=== PATIENT | female | born 2000 | race African-American/Black ===

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

== ENCOUNTER 2022-01-03 05:59 | Emergency (ER) | payer OTHER ==
[2022-01-03] MEDS ORDERED: ONDANSETRON 4 MG/2 ML VIAL ONE (06:28)
[2022-01-03] MEDS ORDERED: MORPHINE 4 MG/ML SYR ONE (06:28)
[2022-01-03 06:46] LABS: Absolute Lymphocytes (CBC) 1.3 K/uL (0.7-4.9); Hematocrit 32.5 % (36.0-45.0); Lymphocytes % 8.3 % (15.3-44.8); MPV 8.4 fL (7.6-11.3); RBC Red Blood Cell Count 3.85 M/uL (3.86-4.86)
[2022-01-03 07:02] LABS: Albumin 3.6 g/dL (3.4-5.0); Bilirubin Total 0.4 mg/dL (0.2-1.0); Potassium 3.4 mmol/L (3.5-5.1); Protein, Total 7.1 g/dL (6.4-8.2)
[2022-01-03 07:04] LABS: Urine Appearance Cloudy (Clear); Urine Bilirubin Negative (Negative); Urine Blood 3+ (Negative); Urine Color Yellow (Yellow); Urine Glucose Negative (Negative); Urine Protein Negative (Negative); Urine Specific Gravity 1.015 (1.005-1.030); Urine Urobilinogen 0.2 mg/dL (0.2-1.0)
[2022-01-03 07:05] LABS: Urine Microscopic Reflex ORDER UMIC
[2022-01-03 07:08] LABS: Urine Bacteria >50 /HPF (<20)
--- NOTE | 2022-01-03 08:11 | RAD REPORT ---
EXAM DESCRIPTION: CTAbdomen Pelvis W Contrast - 01/03/2022 7:39 am CLINICAL HISTORY: Abdominal pain. Abdominal pain, acute, nonlocalized COMPARISON: <Comparisons> TECHNIQUE: Biphasic CT imaging of the abdomen and pelvis was performed with 100 ml non-ionic IV cont rast. All CT scans are performed using dose optimization technique as appropriate and may include automated exposure control or mA/KV adjustment according to patient size. FINDINGS: The lung bases are clear. The liver, spleen, pancreas, adrenal glands and kidneys are within normal limits. No bowel obstruction, free air, free fluid or abscess. The appendix is normal. No evidence of signi ficant lymphadenopathy. No suspicious bony findings. Mildly prominent uterus is noted. IMPRESSION: No acute intra-abdominal or pelvic finding.
--- NOTE | 2022-01-03 08:11 | RAD REPORT ---
EXAM DESCRIPTION: US - Abdomen Exam Limited - 01/03/2022 7:54 am CLINICAL HISTORY: abd pain, recent COMPARISON: No comparisons FINDINGS: The gallbladder demonstrates multiple small gallstones. No pericholecystic fluid or gallbl adder wall thickening. The common bile duct is normal measuring 3 mm. The liver demonstrates no biliary dilatation IMPRESSION: Cholelithiasis
--- NOTE | 2022-01-03 08:33 | ER ---
Nurse's Notes [facility] Name: Dianna Wilson Age: 21 yrs Sex: Female : 2000 Arrival Date: 01/03/2022 Time: 06:06 Bed 13 Private MD: Diagnosis: Other cholelithiasis without obstruction;UTI/ Urinary tract infection, site not specified Presentation: 01/03 06:07 Chief complaint: EMS states: Called out for abdominal pain. Severe enough had tw5 to carry patient out. Patient states it feels like contractions all over again. She had a recent 3 weeks ago without complications. Coronavirus screen: Vaccine status: Patient reports receiving the 2nd dose of the covid vaccine. [employer]. Ebola Screen: Patient negative for fever greater than or equal to 101.5 degrees Fahrenheit, and additional compatible Ebola Virus Disease symptoms Patient denies exposure to infectious person. Patient denies travel to an Ebola-affected area in the 21 days before illness onset. Initial Sepsis Screen: Does the patient meet any 2 criteria? No. Patient's initial sepsis screen is negative. Does the patient have a suspected source of infection? Yes: Acute abdominal pain. Risk Assessment: Do you want to hurt yourself or someone else? Patient reports no desire to harm self or others. Onset of symptoms was January 03, 2022 at 04:00. Care prior to arrival: Medication(s) given: 15 mg toradol. 06:07 Method Of Arrival: EMS: [facility] tw5 06:07 Acuity: TONA 3 tw5 Triage Assessment: 06:09 General: Appears uncomfortable, Behavior is calm, cooperative, appropriate for age. tw5 Pain: Complains of pain in abdomen Pain radiates to back Pain currently is 10 out of 10 on a pain scale. GI: Reports nausea. 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 - Social history:: Smoking status: Patient denies any tobacco usage or history of. - Family history:: not pertinent. - Hospitalizations: : Patient was recently seen at. Screenin:36 Abuse screen: Denies threats or abuse. Nutritional screening: No deficits noted. ll3 Tuberculosis screening: No symptoms or risk factors identified. Fall Risk No fall in past 12 months (0 pts). No secondary diagnosis (0 pts). IV access (20 points). Ambulatory Aid- None/Bed Rest/Nurse Assist (0 pts). Gait- Normal/Bed Rest/Wheelchair (0 pts) Mental Status- Oriented to own ability (0 pts). Total Yoon Fall Scale indicates No Risk (0-24 pts). Assessment: 06:10 General: Appears uncomfortable, Behavior is calm, cooperative. Pain: Complains of pain ll3 in back and abdomen Pain currently is 10 out of 10 on a pain scale. Pain began 5 AM. Neuro: Level of Consciousness is awake, alert, obeys commands, Oriented to person, place, time, situation. Respiratory: Respiratory effort is even, unlabored, Respiratory pattern is regular, symmetrical. GI: Abdomen is round non-distended, Bowel sounds present X 4 quads. Abdomen is tender to palpation in abdomen Reports lower abdominal pain, upper abdominal pain, nausea, vomiting. Derm: Skin is pink, warm \T\ dry. 07:13 Reassessment: Patient and/or family updated on plan of care and expected duration. Pain jg9 level reassessed. Patient is alert, oriented x 3, equal unlabored respirations, skin warm/dry/pink. Patient reports pain is now 6/10 but she is still uncomfortable. 08:10 Reassessment: Patient and/or family updated on plan of care and expected duration. Pain jg9 level reassessed. Patient is alert, oriented x 3, equal unlabored respirations, skin warm/dry/pink. patient back in bed from imaging, no distress, on the phone talking. Vital Signs: 06:07 BP 119 / 81; Pulse 89; Resp 18; Temp 98.2; Pulse Ox 100% ; Weight 97.07 kg; Height 5 tw5 ft. 7 in. (170.18 cm); Pain 10/10; 07:13 BP 112 / 60; Pulse 84; Resp 12 S; Pulse Ox 99% on R/A; Pain 6/10; jg9 08:50 BP 124 / 78; Pulse 73; Pulse Ox 100% on R/A; jg9 06:07 Body Mass Index 33.52 (97.07 kg, 170.18 cm) tw5 ED Course: 06:06 Patient arrived in ED. tw5 06:07 Kurt Alberto MD is Attending Physician. rn 06:09 Triage completed. tw5 06:09 Arm band placed on. tw5 06:29 CBC with Diff Sent. mh5 06:29 CMP Sent. 5 06:29 Lipase Sent. 5 06:29 Initial lab(s) drawn, by ED staff, sent to lab. Maintain EMS IV. Dressing intact. Good 5 blood return noted. Site clean \T\ dry. 06:30 Patient has correct armband on for positive identification. Bed in low position. Call [facility] light in reach. Side rails up X 1. Warm blanket given. Pulse ox on. NIBP on. 06:50 Urine Culture Sent. 5 06:50 Urine collected: clean catch specimen, cloudy. 5 07:13 Ivonne Farrell, LINDA is Primary Nurse. jg9 07:34 Attending Physician role handed off by Kurt Alberto MD ma2 07:34 Marsha Yañez MD is Attending Physician. ma2 07:40 CT Abd/Pelvis - IV Contrast Only In Process Unspecified. EDMS 07:56 Abdomen Limited US In Process Unspecified. EDMS 08:27 Urine Microscopic Only Sent. jg9 08:33 Mariano Zavala MD is Referral Physician. ma2 08:50 No provider procedures requiring assistance completed. jg9 08:50 IV discontinued. jg9 Administered Medications: 06:30 Drug: Zofran (Ondansetron) 4 mg Route: IVP; Site: right antecubital; ll3 07:15 Follow up: Response: No adverse reaction jg9 06:35 Drug: morphine 4 mg Route: IVP; Infused Over: 4 mins; Site: right antecubital; ll3 07:15 Follow up: Response: No adverse reaction; Pain is decreased jg9 Medication: 06:10 VIS not applicable for this client. ll3 Outcome: 08:33 Discharge ordered by . ma2 08:50 Discharged to home ambulatory. jg9 08:50 Condition: stable 08:50 Discharge instructions given to patient, Instructed on discharge instructions, follow up and referral plans. Demonstrated understanding of instructions, follow-up care, Prescriptions given X 3. 08:51 Patient left the ED. jg9 Signatures: Dispatcher [employer] EDMS Kurt Alberto MD MD rn Martinez, Maria [facility] Marsha Yañez MD MD ma2 Wood, Tiffany Adalgisa Adams RN RN ll3 Ivonne Farrell RN RN jg9 Corrections: (The following items were deleted from the chart) 07:00 06:29 UA MICROSCOPIC+U.LAB.BRZ drawn and sent. [address] 07:01 06:50 URINALYSIS+U.LAB.BRZ drawn and sent. [address]
--- NOTE | 2022-01-03 08:34 | EDPHYS ---
Physician Documentation [facility] Name: Dianna Wilson Age: 21 yrs Sex: Female : 2000 Arrival Date: 01/03/2022 Time: 06:06 Bed 13 Private MD: ED Physician Marsha Yañez HPI: 01/03 06:17 This 21 yrs old Black Female presents to ER via EMS with complaints of Abdominal Pain. rn 06:17 The patient presents with abdominal pain in the upper abdomen. Onset: The rn symptoms/episode began/occurred this morning. The symptoms radiate to back. Associated signs and symptoms: Pertinent positives: nausea and vomiting, Pertinent negatives: blood in stools, chest pain, constipation, diarrhea, dysuria, fever, hematuria, vomiting blood. The symptoms are described as achy, crampy, sharp. Modifying factors: The symptoms are alleviated by nothing, the symptoms are aggravated by nothing. Severity of pain: At its worst the pain was moderate in the emergency department the pain is unchanged. The patient has not experienced similar symptoms in the past. The patient has been recently seen by a physician:. Pt reports just had vaginal delivery 3 weeks ago, full term, uncomplicated, had epidural at the time. Was doing ok, no worsening or new vaginal discharge, no fever. + nausea/vomiting. No diarrhea. Reports pain in upper abdomen and mid back at location of epidural. No trauma. . 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 - Social history:: Smoking status: Patient denies any tobacco usage or history of. - Family history:: not pertinent. - Hospitalizations: : Patient was recently seen at. ROS: 06:17 Constitutional: Negative for fever, chills, and weight loss, Eyes: Negative for injury, rn pain, redness, and discharge, Neck: Negative for injury, pain, and swelling, Cardiovascular: Negative for chest pain, palpitations, and edema, Respiratory: Negative for shortness of breath, cough, wheezing, and pleuritic chest pain, Abdomen/GI: + abd pain and nausea/vomiting Back: Negative for injury : Negative for injury, bleeding, discharge, and swelling, MS/Extremity: Negative for injury and deformity, Skin: Negative for injury, rash, and discoloration, Neuro: Negative for headache, weakness, numbness, tingling, and seizure. Exam: 06:17 Constitutional: This is a well developed, well nourished patient who is awake, alert rn Head/Face: Normocephalic, atraumatic. Cardiovascular: Regular rate and rhythm. No pulse deficits. Respiratory: No increased work of breathing, no retractions or nasal flaring. Abdomen/GI: soft, + tender RUQ/epigastric/LUQ/periumbilical Back: No spinal tenderness. No costovertebral tenderness. Full range of motion. Skin: Warm, dry MS/ Extremity: Pulses equal, no cyanosis. Neuro: Awake and alert, GCS 15, oriented to person, place, time, and situation. Cranial nerves II-XII grossly intact. Motor strength 5/5 in all extremities. Sensory grossly intact. Vital Signs: 06:07 BP 119 / 81; Pulse 89; Resp 18; Temp 98.2; Pulse Ox 100% ; Weight 97.07 kg; Height 5 tw5 ft. 7 in. (170.18 cm); Pain 10/10; 07:13 BP 112 / 60; Pulse 84; Resp 12 S; Pulse Ox 99% on R/A; Pain 6/10; jg9 08:50 BP 124 / 78; Pulse 73; Pulse Ox 100% on R/A; jg9 06:07 Body Mass Index 33.52 (97.07 kg, 170.18 cm) tw5 MDM: 06:07 Patient medically screened. rn 07:05 Transition of care: After a detail discussion of the patient's case, care is rn transferred to Marsha Yañez MD. 08:32 Differential diagnosis: gastritis, gastroesophageal reflux disease, Irritable bowel ma2 syndrome, non-specific abd pain. Data reviewed: vital signs, nurses notes. Counseling: I had a detailed discussion with the patient and/or guardian regarding: the historical points, exam findings, and any diagnostic results supporting the discharge/admit diagnosis, the presence of at least one elevated blood pressure reading (>120/80) during this emergency department visit, the need for outpatient follow up. Response to treatment: the patient's symptoms have resolved after treatment. 01/03 06:15 Order name: CBC with Diff; Complete Time: 06:53 rn 01/03 06:15 Order name: CMP; Complete Time: 08:13 rn 01/03 06:15 Order name: Lipase; Complete Time: 08:13 rn 01/03 06:50 Order name: Urine Culture mw2 01/03 06:15 Order name: Abdomen Limited US; Complete Time: 08:13 rn 01/03 06:15 Order name: CT Abd/Pelvis - IV Contrast Only; Complete Time: 08:13 rn 01/03 07:04 Order name: Urinalysis; Complete Time: 08:13 EDMS 01/03 07:06 Order name: Urinalysis; Complete Time: 08:13 EDMS 01/03 07:11 Order name: Urine Microscopic Only EDMS 01/03 06:15 Order name: IV Saline Lock; Complete Time: 06:29 rn 01/03 06:15 Order name: Labs collected and sent; Complete Time: 06:29 rn 01/03 06:15 Order name: Urine Dipstick-Ancillary (obtain specimen); Complete Time: 06:48 rn Administered Medications: 06:30 Drug: Zofran (Ondansetron) 4 mg Route: IVP; Site: right antecubital; ll3 07:15 Follow up: Response: No adverse reaction jg9 06:35 Drug: morphine 4 mg Route: IVP; Infused Over: 4 mins; Site: right antecubital; ll3 07:15 Follow up: Response: No adverse reaction; Pain is decreased jg9 Disposition Summary: 01/03/22 08:33 Discharge Ordered Location: Home ma2 Condition: Stable ma2 Diagnosis - Other cholelithiasis without obstruction ma2 - UTI/ Urinary tract infection, site not specified ma2 Followup: ma2 - With: Mariano Zavala MD - When: Tomorrow - Reason: If symptoms return, Continuance of care Discharge Instructions: - Urinary Tract Infection, Adult ma2 - Cholelithiasis ma2 - Discharge Summary Sheet jg9 Forms: - Work release form jg9 - Medication Reconciliation Form ma2 - Thank You Letter ma2 - Antibiotic Education ma2 - Prescription Opioid Use ma2 Prescriptions: - Zofran 4 mg Oral Tablet - take 1 tablet by ORAL route every 12 hours As needed; 20 tablet; Refills: 0, ma2 Product Selection Permitted - Diclofenac Sodium 75 mg Oral Tablet Sustained Release - take 1 tablet by ORAL route 2 times per day; 30 tablet; Refills: 0, Product ma2 Selection Permitted - cefpodoxime 200 mg Oral Tablet - take 1 tablet by ORAL route every 12 hours with food; 14 tablet; Refills: 0, ma2 Product Selection Permitted Signatures: Dispatcher [employer] EDMS Kurt Alberto MD MD rn Alzahri, Mohammad, MD MD ma2 Florence Simmons tw5 Adalgisa Quesada RN RN ll3 Ivonne Farrell RN jg9 Corrections: (The following items were deleted from the chart) 07:00 06:16 UA MICROSCOPIC+U.LAB.BRZ ordered. EDMS EDMS 07:01 06:50 URINALYSIS+U.LAB.BRZ ordered. EDMS EDMS 07:11 07:01 Urinalysis W/Microscopic ordered. EDMS EDMS
[2022-01-03 09:15] VITALS: TEMP 98.2
[2022-01-03 09:24] VITALS: BP 124/78; O2SAT 100
== END 2022-01-03 08:51 | disposition home or self-care (01) ==
LOC: ER 05:59
DX: K80.20 Calculus of gallbladder without cholecystitis without obstruction (principal); N39.0 Urinary tract infection, site not specified
CPT/HCPCS: 87088; 85025; 87086; 36415; 87077; 87186; 83690; 80053; 74177; 76705; 96375; 96374; 99284; Q9967; J2405; 81003; 81015

== ENCOUNTER 2022-01-03 18:20 | Inpatient (IN) | payer OTHER ==
--- NOTE | 2022-01-03 19:34 | ER ---
Nurse's Notes [facility] Name: Dianna Wilson Age: 21 yrs Sex: Female : 2000 Arrival Date: 01/03/2022 Time: 18:22 Bed 16 Private MD: Diagnosis: Abdominal pain, Generalized;Fever, unspecified;UTI/ Urinary tract infection, site not specified Presentation: 01/03 18:33 Chief complaint: Patient states: "I was discharged earlier today and diagnosed with ss gallbladder and UTI. I checked my temperature at home and it said 103.0 and I feel lightheaded." PT states she did not take fever reducing medication prior to arrival. Coronavirus screen: Client denies travel out of the [place] in the last 14 days. Ebola Screen: Patient denies exposure to infectious person. Patient denies travel to an Ebola-affected area in the 21 days before illness onset. Initial Sepsis Screen: Does the patient meet any 2 criteria? No. Patient's initial sepsis screen is negative. Does the patient have a suspected source of infection? Yes: Dysuria/Frequency/Urgency/UTI. Risk Assessment: Do you want to hurt yourself or someone else? Patient reports no desire to harm self or others. Onset of symptoms was January 03, 2022. 18:33 Method Of Arrival: Ambulatory ss 18:33 Acuity: TONA 4 ss Triage Assessment: 18:45 Headache History: Denies prior headaches. General: Appears in no apparent distress. jg9 Behavior is calm, cooperative, Smells of. Pain:. Pain: Complains of pain in head Pain currently is 5 out of 10 on a pain scale. Pain: Pain began 1 hour ago. Also complains of no other associated symptoms. Neuro: Reports lightheaded. 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 - Social history:: Smoking status: Patient denies any tobacco usage or history of. Screenin:45 Abuse screen: Denies threats or abuse. Nutritional screening: No deficits noted. jg9 Tuberculosis screening: No symptoms or risk factors identified. Fall Risk None identified. Assessment: 18:44 Reassessment: No changes from previously documented assessment. jg9 Vital Signs: 18:30 BP 117 / 70; Pulse 93; Resp 14 S; Pulse Ox 99% ; jg9 18:33 BP 118 / 65; Pulse 92; Resp 14; Temp 100.3(O); Pulse Ox 99% ; Weight 98.43 kg; Height 5 ss ft. 7 in. (170.18 cm); Pain 6/10; 18:33 Body Mass Index 33.99 (98.43 kg, 170.18 cm) ED Course: 18:22 Patient arrived in ED. as 18:30 Jitendra Negron PA is PHCP. [facility] 18:30 Marsha Yañez MD is Attending Physician. [facility] 18:35 Triage completed. ss 18:35 Arm band placed on right wrist. ss 18:44 Ivonne Farrell, LINDA is Primary Nurse. jg9 18:47 Patient has correct armband on for positive identification. Bed in low position. Call jg9 light in reach. Side rails up X 1. 19:31 Sujit Blair is Hospitalizing Provider. jmm 19:45 Inserted saline lock: 20 gauge in left antecubital area, using aseptic technique. ke1 Administered Medications: 20:07 Drug: NS 0.9% 1000 ml Route: IV; Rate: 1 bolus; Site: left antecubital; ke1 20:07 Drug: Zofran (Ondansetron) 4 mg Route: IVP; Site: left antecubital; ke1 20:07 Drug: Cefepime 1 grams Route: IVPB; Rate: 200 ml/hr; Infused Over: 30 mins; Site: left ke1 antecubital; 20:07 Drug: Flagyl (metroNIDAZOLE) 500 mg Volume: 100 ml; Route: IVPB; Rate: 200 ml/hr; ke1 Infused Over: 30 mins; Site: left antecubital; 20:07 Drug: morphine 4 mg Route: IVP; Infused Over: 4 mins; Site: left antecubital; ke1 Medication: 18:47 VIS not applicable for this client. jg9 Outcome: 19:34 Decision to Hospitalize by Provider. m 22:56 Patient left the ED. ds4 Signatures: Jitendra Negron PA PA jmm Martinez, Amelia as Smirch, Shelby, RN RN ss Arthur El ds4 Ivonne Farrell, RN RN jg9 Robb Mcadams RN RN ke1
--- NOTE | 2022-01-03 19:35 | EDPHYS ---
Physician Documentation [facility] Name: Dianna Wilson Age: 21 yrs Sex: Female : 2000 Arrival Date: 01/03/2022 Time: 18:22 Bed 16 Private MD: ED Physician Marsha Yañez HPI: 01/03 18:40 This 21 yrs old Black Female presents to ER via Ambulatory with complaints of Fever, jmm Headache, Back Pain - gallbladder. 18:40 Onset: The symptoms/episode began/occurred gradually. This is a 21 year old female with jmm a history of asthma that presents to the ED with complaints of ongoing abdominal pain, vomiting. Patient was seen in the ED earlier this morning and diagnosed with a UTI. Patient states her pain has intensified. . 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 - Social history:: Smoking status: Patient denies any tobacco usage or history of. ROS: 18:40 Constitutional: Positive for chills, fever. jmm 18:40 Abdomen/GI: Positive for abdominal pain, nausea and vomiting. 18:40 Back: Positive for pain with movement. 18:40 All other systems are negative. Exam: 18:40 Constitutional: This is a well developed, well nourished patient who is awake, alert, jmm and in no acute distress. Head/Face: atraumatic. Eyes: EOMI, no conjunctival erythema appreciated ENT: Moist Mucus Membranes Neck: Trachea midline, Supple Chest/axilla: Normal chest wall appearance and motion. Cardiovascular: Regular rate and rhythm. No edema appreciated Respiratory: Normal respirations, no respiratory distress appreciated 18:40 Back: Normal ROM Skin: General appearance color normal MS/ Extremity: Moves all extremities, no obvious deformities appreciated, no edema noted to the lower extremities Neuro: Awake and alert Psych: Behavior is normal, Mood is normal, Patient is cooperative and pleasant 18:40 Abdomen/GI: Inspection: abdomen appears normal, Bowel sounds: normal, Palpation: soft, moderate abdominal tenderness, in all quadrants. Vital Signs: 18:30 BP 117 / 70; Pulse 93; Resp 14 S; Pulse Ox 99% ; jg9 18:33 BP 118 / 65; Pulse 92; Resp 14; Temp 100.3(O); Pulse Ox 99% ; Weight 98.43 kg; Height 5 ss ft. 7 in. (170.18 cm); Pain 6/10; 18:33 Body Mass Index 33.99 (98.43 kg, 170.18 cm) ss MDM: 18:40 Patient medically screened. catie 19:31 Data reviewed: vital signs, nurses notes. Counseling: I had a detailed discussion with catie the patient and/or guardian regarding: the historical points, exam findings, and any diagnostic results supporting the discharge/admit diagnosis, lab results, the need for further work-up and treatment in the hospital. 01/04 00:23 ED course: Labs from the previous visit were reviewed. I discussed these labs with Dr. catie Zavala whom will consult on admission. I discussed the patient with Nella Addison PA-C whom accepted the patient to Dr. Blair's service. Repeat labs revealed elevations in bili and transaminases raising concerns for choledocholithiasis. Call for tomorrow shows GI to be teacher education director tomorrow. Nella Addison will consult GI as well and order MRCP for am. . 01/03 18:40 Order name: CBC with Diff; Complete Time: 20:02 [facility] 01/03 18:40 Order name: CMP; Complete Time: 20:27 [facility] 01/03 18:40 Order name: Lipase; Complete Time: 20:27 [facility] 01/03 18:40 Order name: Blood Culture Adult (2) [facility] 01/03 18:43 Order name: Urine Culture [facility] 01/03 19:49 Order name: COVID-19 SARS RT PCR (Document "Date of Onset" if Symptomatic); Complete tw5 Time: 21:17 01/03 18:40 Order name: IV Saline Lock; Complete Time: 19:45 [facility] 01/03 18:40 Order name: Labs collected and sent; Complete Time: 19:45 [facility] 01/03 20:44 Order name: CONS Physician Consult EDMS Administered Medications: 01/03 20:07 Drug: NS 0.9% 1000 ml Route: IV; Rate: 1 bolus; Site: left antecubital; ke1 20:07 Drug: Zofran (Ondansetron) 4 mg Route: IVP; Site: left antecubital; ke1 20:07 Drug: Cefepime 1 grams Route: IVPB; Rate: 200 ml/hr; Infused Over: 30 mins; Site: left ke1 antecubital; 20:07 Drug: Flagyl (metroNIDAZOLE) 500 mg Volume: 100 ml; Route: IVPB; Rate: 200 ml/hr; ke1 Infused Over: 30 mins; Site: left antecubital; 20:07 Drug: morphine 4 mg Route: IVP; Infused Over: 4 mins; Site: left antecubital; ke1 Disposition Summary: 01/03/22 19:34 Hospitalization Ordered Hospitalization Status: Observation [facility] Provider: Sujit Blair Location: Telemetry/MedSurg (observation) [facility] Condition: Stable jmm Problem: new jmm Symptoms: are unchanged jmm Bed/Room Type: Standard [facility] Room Assignment: 224(01/03/22 21:32) Diagnosis - Abdominal pain, Generalized jmm - Fever, unspecified jmm - UTI/ Urinary tract infection, site not specified [facility] Forms: - Medication Reconciliation Form jmm - SBAR form [facility] Addendum: 01/11/2022 18:07 Co-signature as Attending Physician, Marsha rivera a2 Signatures: Dispatcher [employer] Noemy Andersen RN Jitendra Choudhury PA PA Marisela Blanton RN RN ss Alzahri, Mohammad, MD MD ma2 Robb Mcadams RN RN ke1 Corrections: (The following items were deleted from the chart) 01/03 21:32 19:34 [facility] mw
[2022-01-03 19:57] LABS: Absolute Lymphocytes (CBC) 0.8 K/uL (0.7-4.9); Hematocrit 33.1 % (36.0-45.0); Lymphocytes % 8.9 % (15.3-44.8); MPV 8.8 fL (7.6-11.3); RBC Red Blood Cell Count 3.99 M/uL (3.86-4.86)
[2022-01-03] MEDS ORDERED: MORPHINE 4 MG/ML SYR ONE (19:58)
[2022-01-03] MEDS ORDERED: NA CHLORIDE 0.9% 1,000 ML ONE (19:59)
[2022-01-03] MEDS ORDERED: NA CHLORIDE 0.9% 100 ML ONE (19:59)
[2022-01-03] MEDS ORDERED: ONDANSETRON 4 MG/2 ML VIAL ONE (19:59)
[2022-01-03] MEDS ORDERED: CEFEPIME 1 GM/VIAL ONE (19:59)
[2022-01-03] MEDS ORDERED: METRONIDAZOLE 500mg IVPB 500 MG/100 ML BAG IV ONE (19:59)
[2022-01-03 20:11] LABS: Albumin 3.5 g/dL (3.4-5.0); Bilirubin Total 2.4 mg/dL (0.2-1.0); Potassium 3.4 mmol/L (3.5-5.1); Protein, Total 7.2 g/dL (6.4-8.2)
--- NOTE | 2022-01-03 20:46 | P.HP ---
Certification for Inpatient Patient admitted to: Observation With expected LOS: <2 Midnights Patient will require the following post-hospital care: None Practitioner: I am a practitioner with admitting privileges, knowledge of patient current condition, hospital course, and medical plan of care. Services: Services provided to patient in accordance with Admission requirements found in Title 42 Section 412.3 of the Code of Federal Regulations Patient History Date of Service: 01/03/22 Reason for admission: Abd Pain, Elevated LFTs History of Present Illness: Patient is a 21-year-old female 3 weeks who presented to the ED with complaints of fever and abdominal pain. Patient was seen in the ED earlier today and diagnosed with UTI and cholelithiasis with Zofran, diclofenac, and cefpodoxime and to follow up with general surgery. Febrile at 100.3 upon arrival. Labs significant for WBC 9.3 (15 during previous visit today), potassium 3.4, T bili 2.4, AST 272, ALT 197, alk phos 231. Liver enzymes were WNL during previous visit. Abdominal ultrasound earlier showed cholelithiasis without cholecystitis or bile duct dilation. She was started on Flagyl and cefepime in the ED. Patient is admitted for further evaluation and treatment as we do have GI. Allergies No Known Allergies Allergy (Unverified 01/03/22 21:21) Home medications list reviewed: Yes (NA) - Past Medical/Surgical History Diabetic: No -: Asthma Past Surgical History: Patient denies surgical history Psychosocial/ Personal History: Patient lives at home with her significant other and baby. - Family History Mother -: Hypertension - Social History Smoking Status: Never smoker Alcohol use: No CD- Drugs: No Caffeine use: No Place of Residence: Home Review of Systems General: Fever Gastrointestinal: Nausea, Vomiting, Abdominal Pain Physical Examination - Physical Exam General: Alert, In no apparent distress HEENT: Atraumatic, PERRLA, EOMI, Sclerae nonicteric Neck: Supple, 2+ carotid pulse no bruit, No LAD, Without JVD or thyroid abnormality Respiratory: Clear to auscultation bilaterally, Normal air movement Cardiovascular: Regular rate/rhythm, Normal S1 S2 Gastrointestinal: Normal bowel sounds, Soft and benign, Tenderness Musculoskeletal: No tenderness Integumentary: No rashes Neurological: Normal speech, Normal strength at 5/5 x4 extr, Normal tone, Normal affect - Studies Laboratory Data (last 24 hrs) 01/03/22 19:30: Sodium 136, Potassium 3.4 L, BUN 9, Creatinine 0.87, Glucose 92, Total Bilirubin 2.4 H, AST 272 H D, ALT 197 H D, Alkaline Phosphatase 231 H D, Lipase 75 01/03/22 19:30: WBC 9.3 D, Hgb 11.0 L, Hct 33.1 L, Plt Count 334 Assessment and Plan - Problems (Diagnosis) (1) Cholelithiasis Current Visit: Yes Status: Acute Qualifiers: Cholelithiasis location: gallbladder Cholecystitis presence: without cholecystitis Biliary obstruction: without biliary obstruction Qualified Code(s): K80.20 - Calculus of gallbladder without cholecystitis without obstruction (2) Elevated LFTs Current Visit: Yes Status: Acute (3) Fever Current Visit: Yes Status: Acute Qualifiers: Fever type: unspecified Qualified Code(s): R50.9 - Fever, unspecified (4) UTI (urinary tract infection) Current Visit: Yes Status: Acute Qualifiers: Urinary tract infection type: acute cystitis Hematuria presence: without hematuria Qualified Code(s): N30.00 - Acute cystitis without hematuria (5) Hypokalemia Current Visit: Yes Status: Acute - Plan -GI and gen surgery consulted -MRCP ordered for morning. -NPO at midnight. Continue IVF and IV antibiotics -Morphine PRN pain, zofran PRN nausea -Monitor and replete electrolytes per protocol -Lovenox for VTE ppx -Full code Discharge Plan: Home Plan to discharge in: 24 Hours - Advance Directives Does patient have a Living Will: No Does patient have a Durable POA for Healthcare: No - Code Status/Comfort Care Code Status Assessed: Yes (Full) Critical Care: No Time Spent Managing Pts Care (In Minutes): 50
[2022-01-03] MEDS: CEFEPIME 1 GM in NA CHLORIDE 0.9% 100 ML IV SCH (21:51)
[2022-01-03 22:44] VITALS: BMI 32.4
[2022-01-03] MEDS: Ringers Lactate 1,000 ML IV SCH (23:06)
[2022-01-04] MEDS: METRONIDAZOLE 500mg IVPB 500 MG/100 ML BAG IV SCH ×3 (01:05→15:48)
[2022-01-04] MEDS: MORPHINE 2 MG/ML SYR IV PRN ×5 (01:08→22:45)
[2022-01-04 04:15] LABS: Absolute Lymphocytes (CBC) 1.5 K/uL (0.7-4.9); Hematocrit 29.3 % (36.0-45.0); Lymphocytes % 22.6 % (15.3-44.8); MCV 84.7 fL (80-100); MPV 8.4 fL (7.6-11.3); RBC Red Blood Cell Count 3.45 M/uL (3.86-4.86)
[2022-01-04 04:44] LABS: Albumin 2.9 g/dL (3.4-5.0); Bilirubin Total 2.8 mg/dL (0.2-1.0); Magnesium 1.9 mg/dL (1.8-2.4); Phosphorus 3.6 mg/dL (2.5-4.9); Potassium 3.6 mmol/L (3.5-5.1); Protein, Total 6.3 g/dL (6.4-8.2); Thyroid Stimulating Hormone 1.67 uIU/mL (0.360-3.740)
[2022-01-04] MEDS ORDERED: KCL 20 MEQ/100 mL IVPB 20 MEQ/100 ML BAG IV SCH (06:30)
[2022-01-04] MEDS: Ringers Lactate 1,000 ML IV SCH ×4 (07:51→20:28)
[2022-01-04] MEDS ORDERED: CEFEPIME 1 GM/VIAL ONE (07:57)
[2022-01-04] MEDS ORDERED: NA CHLORIDE 0.9% 100 ML ONE (07:58)
[2022-01-04] MEDS: CEFEPIME 1 GM in NA CHLORIDE 0.9% 100 ML IV SCH ×2 (08:07→20:27)
[2022-01-04] MEDS: ENOXAPARIN 40 MG/0.4 ML SQ SCH (08:08)
--- NOTE | 2022-01-04 12:59 | P.PN ---
Subjective Date of Service: 01/04/22 Chief Complaint: Abd Pain, Elevated LFTs Patient report intermittent abdominal pain. She denies any fever. Physical Examination - Vital Signs Temperature: 98.6 F Blood Pressure: 132/75 Pulse: 76 Respirations: 16 Pulse Ox (%): 97 - Physical Exam General: Alert, In no apparent distress, Oriented x3 HEENT: Mucous membr. moist/pink, Sclerae nonicteric Neck: Supple, JVD not distended Respiratory: Clear to auscultation bilaterally, Normal air movement Cardiovascular: No edema, Regular rate/rhythm, Normal S1 S2 Gastrointestinal: Normal bowel sounds, Non-distended, Tenderness (Right upper quadrant) Musculoskeletal: No swelling, No tenderness Integumentary: No rashes, No erythema, No cyanosis Neurological: Normal strength at 5/5 x4 extr - Studies Laboratory Data (last 24 hrs) 01/03/22 19:30: Sodium 136, Potassium 3.4 L, BUN 9, Creatinine 0.87, Glucose 92, Total Bilirubin 2.4 H, AST 272 H D, ALT 197 H D, Alkaline Phosphatase 231 H D, Lipase 75 01/03/22 19:30: WBC 9.3 D, Hgb 11.0 L, Hct 33.1 L, Plt Count 334 Assessment And Plan - Current Problems (Diagnosis) (1) Cholelithiasis Current Visit: Yes Status: Acute Qualifiers: Cholelithiasis location: gallbladder Cholecystitis presence: without cholecystitis Biliary obstruction: without biliary obstruction Qualified Code(s): K80.20 - Calculus of gallbladder without cholecystitis without obstruction (2) Elevated LFTs Current Visit: Yes Status: Acute (3) Fever Current Visit: Yes Status: Acute Qualifiers: Fever type: unspecified Qualified Code(s): R50.9 - Fever, unspecified (4) UTI (urinary tract infection) Current Visit: Yes Status: Acute Qualifiers: Urinary tract infection type: acute cystitis Hematuria presence: without hematuria Qualified Code(s): N30.00 - Acute cystitis without hematuria - Plan CT abdomen pelvis result reviewed and reported normal liver, no comment on CBD Continue IV cefepime and Flagyl. Elevated LFT highly indicative of biliary tree obstruction or cholestasis. GI consult. MRCP tomorrow. Supportive measures-antiemetics and pain management. Start clear liquid diet Follow urine culture and blood cultures.
[2022-01-04] MEDS: ACETAMINOPHEN 500 MG TAB PO PRN (15:44)
[2022-01-04] MEDS: ONDANSETRON 4 MG/2 ML VIAL IV PRN ×2 (15:48→22:49)
--- NOTE | 2022-01-04 16:58 | CON ---
Date of Consultation: 01/04/2022 Diagnoses: Abdominal pain, urinary tract infection, symptomatic cholelithiasis and increased liver e nzymes. History Of Present Illness: This is the case of a 21-year-old patient, comes to the ER complaining o f suprapubic pain, diagnosed with UTI at the same time. She stated that she delivered a baby 3 weeks ago. She has this epigastric right upper quadrant pain, sometimes radiating to the back. During e workup, the patient was found to have also increased LFTs and also gallstones, so she was admitted for the UTI treatment and also for the evaluation of her LFTs and possible choledocholithiasis. She denies any trauma, any melena, any rectal bleeding, although she states dysuria, no hematuria. Review of Systems: Ten points otherwise unremarkable. Past Medical History: Include asthma. Past Surgical History: None. Family History: Include hypertension. Social History: She does not smoke. She does not drink alcohol. Allergies: NONE. SHE STATES SHE HAS A NORMAL DELIVERY OF A BABY 3 WEEKS AGO. Physical Examination: General: The patient is awake alert. HEENT: Pupils are equal and reactive. EOM positive. Anicteric. Neck: Supple. Chest: Clear. Abdomen: Soft and depressible. Mild suprapubic tenderness. She does not have any major pain in the belly right now, although she states some upper back pain. No Ramos sign. Pelvic: Deferred. Rectal: Deferred. Breast: Deferred. Extremities: Good capillary refill. Laboratory Data: WBC count of 6.6, hemoglobin of 9.7, and platelets of 302. Total bilirubin of 2.8, coming up from 2.4. Alkaline phosphate is 211, ALT 169, AST 188, lipase is 75. The patient had abd ominal CT done showing no acute intraabdominal pelvic findings. The ultrasound of the abdomen shows cholelithiasis. Assessment: A 21-year-old patient with different problems, abdominal pain, suprapubic pain, dysuria, urinary tract infection, cholelithiasis, and also increased liver enzymes. We are going to get a GI consult with Dr. Smyth involved for ERCP if possible to rule out any stone in the common bile duct. The options of laparoscopic cholecystectomy with possible open are discussed with the patient. At the same time, we have to remember that she has been treated also for urinary tract infection and fev er. So at 1 point, once the rule out of the common bile duct stones done, we have to decide what is the best time to do the cholecystectomy. She preferred to have it done during this admission. She u nderstands pros and cons of it. We will discuss that once the GI is involved with the patient. ROXANNE/JELLY Voice ID: [id number] Report ID: [id number]
[2022-01-04] MEDS ORDERED: IBUPROFEN 600 MG TAB PO PRN (18:43)
[2022-01-04] MEDS ORDERED: DOCUSATE NA 100 MG CAP PO PRN (18:43)
--- NOTE | 2022-01-04 22:38 | CON ---
Date of Consultation: 01/04/2022 Reason For Consultation: Cholelithiasis, cholecystitis, and possible choledocholithiasis. History Of Present Illness: The patient is a 21-year-old female with history of ast hma. The patient was in the hospital with right upper quadrant midepigastric left upper quadrant dot n with nausea, vomiting, fevers, and chills with a temperature up to 103.6 report. Liver numbers wer e elevated AST and ALT, a total bilirubin up to 2.8, and alkaline phosphatase normal. The patient ca me to the hospital for further evaluation, also found to have urinary tract infection, on antibiotics . The patient stated the pain began waking her from sleep yesterday morning. She came to the hospit al for further evaluation and care. It appears CT and ultrasound are not available currently. Repor t earlier revealed gallstones in gallbladder and cholecystitis with the elevation in the liver ____ suspicion of possible choledocholithiasis. Past Medical History: Significant for asthma. Medications: None. Allergies: NKDA. Social History: She is single, lives with boyfriend, has 3 children. No tobacco. No alcohol. Occa sional marijuana. Family History: Father, she does not know well. Mother is alive with hypertension and had a cholecy stectomy after her third child. Review of Systems: The patient has upper abdominal pain, which awoke her from sleep and wrapped around to her back, some midepigastric left upper quadrant pain radiating to the back associated with nausea, vomiting, fever s, chills, a temperature up to 103.6 degrees Fahrenheit. She denies any diarrhea, constipation, or c hange in weight. She is 3 weeks' status post delivery of her third child. Physical Examination: Vital Signs: She is 5 feet 7 inches, 210 pounds. BMI of 32.3 kg m sq. Temperature decreased to 98. 1 on antibiotics, pulse of 90, respirations 16, blood pressure 127/63, and O2 saturation 97%. General: She is a mildly obese female lying in bed, in no acute distress. HEENT: Normocephalic and atraumatic. Anicteric. Pupils are equal, round, and reactive to light. E xtraocular movements are intact. Oropharynx clear. Neck: Supple. No masses. Respirations: Clear to auscultation bilaterally. Cardiac: Regular rhythm. Gastrointestinal: Positive bowel sounds, but hypoactive. Soft, nondistended, mildly obese. Pain in the midepigastric, left upper quadrant, right upper quadrant area with some equivocal Ramos sign. No rebound. Slight guarding. No peritoneal signs. No rebound. Extremities: No clubbing, cyanosis, or edema. 2+ pulses. Neuro: Alert and oriented x3. Grossly nonfocal. 5/5 motor sensation intact to light touch. Diagnostic Studies: The patient has a white count of 6.6, down from 9.3 yesterday; hemoglobin 9.7, h ematocrit 29.3, MCV of 85, platelet count 302, polys of 61%, down from 83% yesterday, lymphocytes 23% , monocytes 14%, and eosinophils 2%. The patient has a sodium of 140, potassium 3.6, chloride 110, b icarb 26, BUN of 10, creatinine of 0.7, glucose 100, calcium 8.4, phosphorus 3.6, magnesium 1.9, tota l bilirubin 2.8, down from 2.4 yesterday, AST of 118, ALT down from 270 yesterday, ALT of 169, down f rom 197 yesterday, alkaline phosphatase 211, down from 231 yesterday. Total protein 6.3, albumin 3.9 , globulin of 3.4. Triglycerides 96, cholesterol 123, LDL 57, and HDL 47. Lipase normal at 75. TSH is 1.67. Serologies: COVID-19 testing was negative. On the , the patient has a CT of the abdo men and pelvis, which revealed a ultrasound revealed gallstones in gallbladder by verbal r eport, no written report is available in this computer. Says the gallbladder demonstrates multiple s mall gallstones with no pericholecystic fluid or gallbladder wall thickening. The common bile duct i s measured normal at 3 mm. Impression: 1.Cholelithiasis and probable cholecystitis by history and exam with right upper quadrant midepigast hanna pain radiating to back with nausea, vomiting, fevers, chills, temperature 103.6, and elevated melania er chemistries including AST, ALT, total bilirubin, and alkaline phosphatase. Ultrasound of abdomen reveals gallstones in gallbladder, but no gallbladder wall thickening, no pericholecystic fluid. Com mon bile duct is 3 mm on ultrasound. Also, she has a history of asthma. CT scan is pending at this time. 2.History of asthma. Recommendation: 1.Continue IV fluids, IV antibiotics, increase IV fluids. 2.P.r.n. pain medicines and antiemetics. 3.Keep the patient n.p.o. 4.PT, PTT. 5.Check direct bilirubin. 6.Await MRCP results. NARDA/JELLY Voice ID: [id number] Report ID: [id number]
[2022-01-05] MEDS: ACETAMINOPHEN 500 MG TAB PO PRN (00:08)
[2022-01-05] MEDS: METRONIDAZOLE 500mg IVPB 500 MG/100 ML BAG IV SCH ×3 (00:09→16:25)
[2022-01-05] MEDS: Ringers Lactate 1,000 ML IV SCH ×5 (00:52→21:06)
[2022-01-05 03:52] LABS: Protime INR 1.12
[2022-01-05 03:53] LABS: Absolute Lymphocytes (CBC) 2.1 K/uL (0.7-4.9); Hematocrit 30.3 % (36.0-45.0); Lymphocytes % 23.3 % (15.3-44.8); RBC Red Blood Cell Count 3.61 M/uL (3.86-4.86)
[2022-01-05 04:24] LABS: Bilirubin Direct 0.7 mg/dL (0-0.2); Bilirubin Total 1.4 mg/dL (0.2-1.0); Potassium 3.5 mmol/L (3.5-5.1); Protein, Total 6.6 g/dL (6.4-8.2)
[2022-01-05] MEDS ORDERED: KCL 20 MEQ/100 mL IVPB 20 MEQ/100 ML BAG IV SCH (07:00)
--- NOTE | 2022-01-05 08:45 | RAD REPORT ---
EXAM DESCRIPTION: MRI - Cholangiogram - 01/05/2022 8:17 am CLINICAL HISTORY: Right upper quadrant pain COMPARISON: CT abdomen January 03, gallbladder ultrasound January 03 TECHNIQUE: Axial and coronal heavily T2 weighted sequences were obtained. Coronal T2 HASTE fat satur ation static and coronal multiplane reconstruction imaging generated and reviewed. Horizontal and [place] tical axis rotational views obtained using maximum intensity projection (MIP) protocol. FINDINGS: No suspicious liver or spleen finding identified. No suspicious finding in the imaged port ions of the kidneys. Normal size gallbladder seen with numerous sub centimeter gallstones layering in the dependent portio n of the gallbladder. No suspicion for gallbladder wall thickening or edema on this examination. Intrahepatic and extrahepatic biliary tree normal in diameter. No common duct stones are identifiable . No stricture, mass or other biliary tree abnormality. IMPRESSION: No duct stone or biliary tree abnormality. Multiple punctate gallstones.
[2022-01-05] MEDS: CEFEPIME 1 GM in NA CHLORIDE 0.9% 100 ML IV SCH ×2 (08:49→21:04)
[2022-01-05] MEDS: MORPHINE 2 MG/ML SYR IV PRN ×3 (08:50→21:04)
[2022-01-05] MEDS: ENOXAPARIN 40 MG/0.4 ML SQ SCH (08:50)
[2022-01-05] MEDS: ONDANSETRON 4 MG/2 ML VIAL IV PRN (08:54)
[2022-01-05] MEDS ORDERED: METRONIDAZOLE 500mg IVPB 500 MG/100 ML BAG IV SCH (09:00)
--- NOTE | 2022-01-05 13:43 | PN ---
Date of Progress Note: 01/05/2022 Diagnosis: UTI and also abdominal pain. Subjective: This is the case of a 21-year-old patient, who comes to us with 2 problems; UTI which is being treated right now with antibiotics significant enough for IV medications and also found to hav e on and off recurrent abdominal pain with LFTs elevated. Diagnosed with symptomatic cholelithiasis and LFTs being checked. GI consult was obtained. MRCP was done showing no at least by imaging stone in common bile duct, although we cannot explain the left deceleration with just stones in the gallbl adder. The pain is better. No guarding or rebound. No Ramos signs. Objective: Chest: Clear. Abdomen: Soft and depressible. No guarding or rebound. No Ramos sign. Extremities: Good capillary refill. Laboratory Data: WBC count shows a WBC count of 8.9. LFTs shows total bilirubin coming down from 2. 4 to 1.4 with alkaline phosphatase elevated from yesterday to 17. MRCP reviewed once again. There i s a room for unable to see stones in the common bile duct. Plan: We will let Dr. Smyth decide about the ERCP status in this patient from the surgical standpoi nt. The patient is going to have the urinary tract infection treated. She is going to be fed today. Follow the LFTs. If they increased, then Dr. Smyth may have to forget about the MRCP and just to do direct ERCP. If she improves, then she will have elective cholecystectomy. ROXANNE/JELLY Voice ID: [id number] Report ID: [id number]
--- NOTE | 2022-01-05 14:39 | P.PN ---
Subjective Date of Service: 01/05/22 Chief Complaint: Abd Pain, Elevated LFTs Patient with intermittent right upper quadrant pain. She denies any fever. MRCP results reviewed. Physical Examination - Vital Signs Temperature: 97.5 F Blood Pressure: 127/69 Pulse: 60 Respirations: 16 Pulse Ox (%): 99 - Physical Exam General: Alert, In no apparent distress, Oriented x3 Neck: Supple, JVD not distended Respiratory: Clear to auscultation bilaterally, Normal air movement Cardiovascular: No edema, Regular rate/rhythm, Normal S1 S2 Gastrointestinal: Normal bowel sounds, Soft and benign, Tenderness (Mild RUQ tenderness) Musculoskeletal: No swelling Integumentary: No rashes, No cyanosis Neurological: Normal strength at 5/5 x4 extr Assessment And Plan - Current Problems (Diagnosis) (1) Cholelithiasis Current Visit: Yes Status: Acute Qualifiers: Cholelithiasis location: gallbladder Cholecystitis presence: without cholecystitis Biliary obstruction: without biliary obstruction Qualified Code(s): K80.20 - Calculus of gallbladder without cholecystitis without obstruction (2) Elevated LFTs Current Visit: Yes Status: Acute (3) Fever Current Visit: Yes Status: Acute Qualifiers: Fever type: unspecified Qualified Code(s): R50.9 - Fever, unspecified (4) UTI (urinary tract infection) Current Visit: Yes Status: Acute Qualifiers: Urinary tract infection type: acute cystitis Hematuria presence: without hematuria Qualified Code(s): N30.00 - Acute cystitis without hematuria - Plan CT abdomen pelvis result reviewed and reported normal liver, no comment on CBD. MRCP shows punctate gallbladder stones, no CBD stone or CBD dilatation. Liver enzymes trended down. Patient might have passed a stone. She is still complaining of right upper quadrant pain. Case discussed with Dr. Smyth. No indication for ERCP at this time. He recommended cholecystectomy. Continue IV cefepime and Flagyl. Supportive measures-antiemetics and pain management. Clear liquid diet Urine culture: Mixed growth. Blood cultures: No growth to date. General surgery to follow
--- NOTE | 2022-01-05 18:49 | P.PN ---
Subjective Date of Service: 01/05/22 Chief Complaint: RUQ/DAT abd pain, elevated LFTs, cholelithiasis, probable cholecystitis Subjective: New changes (MRCP negative. Total bilirubin from 2.7 to 1.4, direct bilirubin 0.7, alk phos 211 to 217, AST 188 to 84, ALT 169 to 127. WBC 8.9. Still has some RUQ/DAT pain.) Physical Examination - Vital Signs Temperature: 97.8 F Blood Pressure: 134/70 Pulse: 72 Respirations: 16 Pulse Ox (%): 99 Assessment And Plan - Current Problems (Diagnosis) (1) Epigastric abdominal pain Current Visit: Yes Status: Acute (2) RUQ abdominal pain Current Visit: Yes Status: Acute (3) Abnormal ultrasound of abdomen Current Visit: Yes Status: Acute Comment: yet CBD 3 mm (4) Cholelithiasis Current Visit: Yes Status: Acute Qualifiers: Cholelithiasis location: gallbladder Cholecystitis presence: without cholecystitis Biliary obstruction: without biliary obstruction Qualified Code(s): K80.20 - Calculus of gallbladder without cholecystitis without obstruction (5) Elevated LFTs Current Visit: Yes Status: Acute - Plan REC: 1) no need for ERCP at this time 2) lap mercedez as per surgery 3) continue IVFs and IV antibiotics
[2022-01-06] MEDS: METRONIDAZOLE 500mg IVPB 500 MG/100 ML BAG IV SCH ×2 (00:47→11:45)
[2022-01-06 04:32] VITALS: O2SAT 99
[2022-01-06 06:35] LABS: Albumin 3.1 g/dL (3.4-5.0); Bilirubin Total 0.6 mg/dL (0.2-1.0); Potassium 3.8 mmol/L (3.5-5.1); Protein, Total 6.9 g/dL (6.4-8.2)
--- NOTE | 2022-01-06 07:04 | P.PN ---
Date of Service: 01/06/22
[2022-01-06] MEDS: CEFEPIME 1 GM in NA CHLORIDE 0.9% 100 ML IV SCH (10:18)
[2022-01-06] MEDS: ENOXAPARIN 40 MG/0.4 ML SQ SCH (10:19)
[2022-01-06] MEDS: Ringers Lactate 1,000 ML IV SCH (11:46)
--- NOTE | 2022-01-06 13:23 | P.DS ---
Admission Date: 01/04/22 Discharge Date: 01/06/22 Disposition: ROUTINE DISCHARGE Discharge Condition: GOOD Reason for Admission: RUQ/DAT abd pain, elevated LFTs, cholelithiasis, probable cholecystitis Consultations: GI - Dr. Smyth General Surgery - Dr. Zavala Brief History of Present Illness: 21yo F, 3 weeks . Presented to the ED with fever and abdominal pain. She was seen earlier in the day, diagnosed with UTI and cholelithiasis, and discharged home. Pain worsened so she returned to the ER. She was noted to have elevated LFTs which were normal earlier in the day. U/S showed cholelithiasis without cholecystitis or bile duct dilation. She was started on empiric antibiotics and admitted for further evaluation. Hospital Course: Problem List Cholelithiasis Elevated LFTs Fever UTI Patient received treatment for a UTI and possible cholecystitis. Ultrasound and CT did not reveal any gallbladder wall thickening, no peric holecystic fluid, no signs of inflammation. Only noted for multiple gallstones. Bilirubin and LFTs were initially elevated. GI was consulted for possible ERCP, however MRCP was negative for stone, and labs had improved. GI recommended no need for ERCP at this time. Symptoms and bloodwork improved. General Surgery was consulted for consideration of cholecystectomy. Dr. Zavala evaluated the patient and recommended to continue medical treatment with antibiotics and low fat diet. Plan is for patient to undergo elective cholecystectomy. Suspect patient likely passed a gallstone. Her urine was concerning for UTI, however urine culture grew mixed lenny and she denied any urinary symptoms. She did have a UTI late in her recent , but was treated and resolved. Follow up with PCP within 1 week Follow up with General Surgery in ~1-2 weeks, recommended elective cholecystectomy in the near future. Discharged with 12 more days of antibiotics. Vital Signs/Physical Exam: Temp Pulse Resp BP Pulse Ox 97 F 53 16 127/69 99 01/06/22 08:00 01/06/22 08:00 01/06/22 08:00 01/06/22 08:00 01/06/22 08:00 General: Alert, In no apparent distress, Oriented x3 HEENT: EOMI, Sclerae nonicteric Respiratory: Clear to auscultation bilaterally, Normal air movement Cardiovascular: No edema, Regular rate/rhythm Gastrointestinal: Soft and benign, Non-distended, Tenderness (minimal RUQ tenderness on deep palpation) Musculoskeletal: No contractures, No tenderness Integumentary: No rashes, No significant lesion Neurological: Normal speech, Normal affect Laboratory Data at Discharge: WBC 8.9 K/uL (4.3-10.9) D 01/05/22 03:13 RBC 3.61 M/uL (3.86-4.86) L 01/05/22 03:13 Hgb 10.1 g/dL (12.0-15.0) L 01/05/22 03:13 Hct 30.3 % (36.0-45.0) L 01/05/22 03:13 MCV 84.0 fL (80-100) 01/05/22 03:13 MCH 27.9 pg (27.0-35.0) 01/05/22 03:13 MCHC 33.2 g/dL (32.0-36.0) 01/05/22 03:13 RDW 16.0 % (12.1-15.2) H 01/05/22 03:13 Plt Count 307 K/uL (152-406) 01/05/22 03:13 MPV 9.0 fL (7.6-11.3) 01/05/22 03:13 Neutrophils % 63.5 % (41.7-73.7) 01/05/22 03:13 Lymphocytes % 23.3 % (15.3-44.8) 01/05/22 03:13 Monocytes % 11.7 % (3.3-12.3) 01/05/22 03:13 Eosinophils % 1.1 % (0-4.4) 01/05/22 03:13 Basophils % 0.4 % (0-1.3) 01/05/22 03:13 Absolute Neutrophils 5.6 K/uL (1.8-8.0) 01/05/22 03:13 Absolute Lymphocytes 2.1 K/uL (0.7-4.9) 01/05/22 03:13 Absolute Monocytes 1.0 K/uL (0.1-1.3) 01/05/22 03:13 Absolute Eosinophils 0.1 K/uL (0-0.5) 01/05/22 03:13 Absolute Basophils 0.0 K/uL (0-0.5) 01/05/22 03:13 PT 12.3 SECONDS (9.5-12.5) 01/05/22 03:13 INR 1.12 01/05/22 03:13 APTT 32.6 SECONDS (24.3-36.9) 01/05/22 03:13 Sodium 138 mmol/L (136-145) 01/06/22 05:54 Potassium 3.8 mmol/L (3.5-5.1) 01/06/22 05:54 Chloride 105 mmol/L (98-107) 01/06/22 05:54 Carbon Dioxide 28 mmol/L (21-32) 01/06/22 05:54 Anion Gap 8.8 mEq/L (5.0-15.0) 01/06/22 05:54 BUN 5 mg/dL (7-18) L 01/06/22 05:54 Creatinine 0.72 mg/dL (0.55-1.3) 01/06/22 05:54 Est GFR (CKD-EPI) 122 ml/min (=/>90) 01/06/22 05:54 Glucose 91 mg/dL (74-106) 01/06/22 05:54 Calcium 8.9 mg/dL (8.5-10.1) 01/06/22 05:54 Phosphorus 3.6 mg/dL (2.5-4.9) 01/04/22 03:59 Magnesium 1.9 mg/dL (1.8-2.4) 01/04/22 03:59 Total Bilirubin 0.6 mg/dL (0.2-1.0) 01/06/22 05:54 Direct Bilirubin 0.7 mg/dL (0-0.2) H 01/05/22 03:13 AST 38 U/L (15-37) H 01/06/22 05:54 ALT 91 U/L (12-78) H 01/06/22 05:54 Alkaline Phosphatase 224 U/L (45-117) H 01/06/22 05:54 Serum Total Protein 6.9 g/dL (6.4-8.2) 01/06/22 05:54 Albumin 3.1 g/dL (3.4-5.0) L 01/06/22 05:54 Globulin 3.8 g/dL (2.3-3.5) H 01/06/22 05:54 Albumin/Globulin Ratio 0.8 (1.1-1.8) L 01/06/22 05:54 Triglycerides 96 mg/dL (<150) 01/04/22 03:59 Cholesterol 123 mg/dL (<200) 01/04/22 03:59 LDL Cholesterol, Calc 57 mg/dL (<130) 01/04/22 03:59 HDL Cholesterol 47 mg/dL (40-60) 01/04/22 03:59 Cholesterol/HDL Ratio 2.62 01/04/22 03:59 Lipase 75 U/L (73-393) 01/03/22 19:30 TSH 1.670 uIU/mL (0.360-3.740) 01/04/22 03:59 SARS-CoV-2 Rap RNA(RT-PCR) Negative (NEGATIVE) 01/03/22 20:12 Home Medications: Docusate Sodium 100 mg PO DAILY PRN 01/03/22 Ibuprofen [Motrin] 600 mg PO Q6HP PRN 01/03/22 Ciprofloxacin HCl [Cipro 500 MG Tablet] 500 mg PO BID 12 Days #24 tab 01/06/22 Metronidazole 500 mg PO Q8H 12 Days #36 tablet 01/06/22 New Medications: Ciprofloxacin HCl [Cipro 500 MG Tablet] 500 mg PO BID 12 Days #24 tab Metronidazole 500 mg PO Q8H 12 Days #36 tablet Diet: low fat Activity: Ad tigre Followup: NONE,NONE [Primary Care Provider] - Time spent managing pt's care (in minutes): 40
[2022-01-06 14:04] VITALS: BP 121/74; TEMP 96.9
--- NOTE | 2022-01-06 14:10 | P.PN ---
Subjective Date of Service: 01/07/22 Chief Complaint: RUQ/DAT abd pain, elevated LFTs, cholelithiasis, probable cholecystitis Subjective: Improving (Improving with normal total bilirubin now at 0.6 (from 2.8 to 1.4 to 0.6). AST 84 to 38 overnight, with ALT 127 to 91, alk phos 217 to 224. Denies abdominal pain today. No N/V/F/C.) Review of Systems Unremarkable Physical Examination - Vital Signs Temperature: 96.9 F Blood Pressure: 121/74 Pulse: 83 Respirations: 16 Pulse Ox (%): 97 - Physical Exam General: Alert, In no apparent distress, Oriented x3, Cooperative HEENT: Atraumatic, Normocephalic, PERRLA, EOMI Neck: Supple Respiratory: Normal air movement Cardiovascular: Normal pulses Gastrointestinal: Soft and benign, No tenderness, No rebound, No guarding Neurological: Normal speech, Normal strength at 5/5 x4 extr - Studies Microbiology Data (last 24 hrs): 01/03/22 19:42 Clean Catch Urine [place] Count - Final >100,000 CFU/ML. 01/03/22 19:42 Clean Catch Urine - Final MIXED DARREL. Assessment And Plan - Current Problems (Diagnosis) (1) Epigastric abdominal pain Status: Acute Comment: Improved. None today. (2) RUQ abdominal pain Status: Acute (3) Abnormal ultrasound of abdomen Status: Acute Comment: yet CBD 3 mm (4) Cholelithiasis Status: Acute Qualifiers: Cholelithiasis location: gallbladder Cholecystitis presence: without cholecystitis Biliary obstruction: without biliary obstruction Qualified Code(s): K80.20 - Calculus of gallbladder without cholecystitis without obstruction (5) Elevated LFTs Status: Acute - Plan REC: 1) no need for ERCP at this time 2) lap mercedez as per surgery 3) continue IVFs and IV antibiotics 4) GI clinic f/u
== END 2022-01-06 15:15 | disposition home or self-care (01) | DRG 776 ==
LOC: ER 18:20 → ERHOLD 20:37 → 2ND 22:21 → OBSVTOIN 01-04 17:29
PROVIDERS: ADMIT Internal Medicine; ATTEND Internal Medicine
DX: O99.63 Diseases of the digestive system complicating the puerperium (principal); K80.10 Calculus of gallbladder with chronic cholecystitis without obstruction; N39.0 Urinary tract infection, site not specified; O86.20 Urinary tract infection following delivery, unspecified; R79.89 Other specified abnormal findings of blood chemistry; Z20.822 Contact with and (suspected) exposure to COVID-19
CPT/HCPCS: 36415; 74177; 74181; 76705; 80053; 80061; 81003; 81015; 82248; 83690; 83735; 84100; 84443; 85025; 85610; 85730; 87040; 87077; 87086; 87088; 87186; 96374; 96375; 99283; 99284; G0378; J0692; J1650; J2270; J2405; J3480; J3490; J7030; J7120; Q9967; U0003